=== PATIENT | male | born 1995 | race Caucasian/White ===

== ENCOUNTER 2018-12-07 15:29 | Emergency (ER) | payer OTHER ==
[~2018-12-07] VITALS: Ht 137.2 cm; Wt 36.3 kg
[~2018-12-07 15:29] MED LIST: ACET325UDC; ALBUTEROL MDI; ALUMAGSIMA; AMOCLA400S PO; CALC.25; CALC.25 PO; CALGLU500; CEPH250SUA PO; DIPH12.5EL; IBUP100S; IPRAIS; Keppra100 MG/1 M PO; MAGNESIUM/PROTEIN; MAGOXI400; MUPI2TC; NYST100P; OXCA150; PHENO15; PHENO60; PHENY125EA; POTA20LUD; SIME40L; ZANTAC SYRUP; [UNRECOGNIZED DRUG - OTHER]; [UNRECOGNIZED DRUG - OTHER]; [UNRECOGNIZED DRUG - OTHER]; [UNRECOGNIZED DRUG - OTHER]
== END 2018-12-07 18:01 | disposition home or self-care (01) ==
LOC: ER 15:29
DX: S52.571A Other intraarticular fracture of lower end of right radius, initial encounter for closed fracture (principal); S52.614A Nondisplaced fracture of right ulna styloid process, initial encounter for closed fracture; Z91.040 Latex allergy status; Z88.8 Allergy status to other drugs, medicaments and biological substances; Z79.899 Other long term (current) drug therapy; G40.909 Epilepsy, unspecified, not intractable, without status epilepticus; W22.8XXA Striking against or struck by other objects, initial encounter
CPT/HCPCS: 29125; 73090; 73130; 99283-25

== ENCOUNTER 2019-04-12 21:05 | Emergency (ER) | payer OTHER ==
[~2019-04-12] VITALS: Ht 129.5 cm; Wt 36.3 kg
[2019-04-12 22:32] LABS: BASOPHILS ABSOLUTE AUTO 0.04 K/mm3 (0.00-0.23); BASOPHILS PERCENT AUTO 1 % (0-2); EOSINOPHILS ABSOLUTE AUTO 0.08 K/mm3 (0.00-0.68); EOSINOPHILS PERCENT AUTO 1 % (0-6); Hematocrit 49.4 % (37.0-53.0); Hemoglobin 16.6 g/dL (13.5-17.5); IMMATURE GRAN ABSOLUTE AUTO 0.04 K/mm3 (0.00-0.10); IMMATURE GRAN PERCENT AUTO 1 % (0-1); LYMPHOCYTES ABSOLUTE AUTO 1.31 K/mm3 (0.84-5.20); LYMPHOCYTES PERCENT AUTO 16 % (21-46); MONOCYTES ABSOLUTE AUTO 0.89 K/mm3 (0.16-1.47); MONOCYTES PERCENT AUTO 11 % (4-13); Mean Corpuscular HGB 33.1 pg (26.0-34.0); Mean Corpuscular HGB Conc 33.6 g/dL (31.5-36.5); Mean Corpuscular Volume 98 fL (80-100); Mean Platelet Volume 12.6 fL (9.1-12.4); NEUTROPHILS ABSOLUTE AUTO 5.88 K/mm3 (1.96-9.15); NEUTROPHILS PERCENT AUTO 71 % (41-73); Platelet Count 177 K/mm3 (150-400); RDW Standard Deviation 43.8 fL (35.1-46.3); Red Blood Cell Count 5.02 M/mm3 (4.30-5.90); White Blood Cell Count 8.24 K/mm3 (4.00-11.30)
[2019-04-12 22:51] LABS: Alanine Aminotransfer (ALT/SGP 62 U/L (12-78); Albumin, Blood 4.6 g/dL (3.4-5.0); Albumin/Globulin Ratio 0.9 (0.8-1.8); Alk Phos 158 U/L (50-136); Anion Gap 9 mmol/L (6-16); Aspartate Aminotrans (AST/SGOT 50 U/L (12-37); Bilirubin, Total 0.6 mg/dL (0.1-1.0); Blood Urea Nitrogen 16 mg/dL (8-24); CO2, Blood 31 mmol/L (21-32); Chloride, Blood 100 mmol/L (98-108); Creatinine, Blood 0.53 mg/dL (0.60-1.20); Globulin, Blood 5.4 g/dL (2.2-4.0); Glomerular Filtration Rate >60 (60-); Glucose, Blood 84 mg/dL (70-99); Potassium, Blood 3.5 mmol/L (3.5-5.5); Sodium, Blood 140 mmol/L (136-145)
[2019-04-13] MEDS ORDERED: Bactrim Ds Tab1 EACH PO (21:54)
== END 2019-04-12 22:22 | disposition home or self-care (01) ==
LOC: ER 21:05
PROVIDERS: Physician Assistant
DX: S60.211A Contusion of right wrist, initial encounter (principal); G80.9 Cerebral palsy, unspecified; Z91.040 Latex allergy status; Z88.8 Allergy status to other drugs, medicaments and biological substances; Z79.899 Other long term (current) drug therapy; X58.XXXA Exposure to other specified factors, initial encounter
CPT/HCPCS: 29125; 36415; 73100; 80053; 80177; 80184; 85025; 99283-25

== ENCOUNTER 2019-04-13 20:27 | Emergency (ER) | payer OTHER ==
[~2019-04-13] VITALS: Ht 129.5 cm; Wt 36.3 kg
[2019-04-13] MEDS ORDERED: Bactrim Ds Tab1 EACH PO (21:54)
== END 2019-04-13 22:02 | disposition home or self-care (01) ==
LOC: ER 20:27
DX: L03.113 Cellulitis of right upper limb (principal); G40.909 Epilepsy, unspecified, not intractable, without status epilepticus; Z91.040 Latex allergy status; Z79.899 Other long term (current) drug therapy; Z87.820 Personal history of traumatic brain injury
CPT/HCPCS: 99282

== ENCOUNTER 2019-11-02 20:41 | Emergency (ER) | payer OTHER ==
[~2019-11-02] VITALS: Ht 129.5 cm; Wt 36.3 kg
[~2019-11-02 20:41] MED LIST changes: +Bactrim Ds Tab1 EACH PO; -CALC.25; +CALC.25 PT; -IBUP100S; +IBUP100S PT; -Keppra100 MG/1 M PO; +Keppra100 MG/1 M PT; -PHENO60; +PHENO60 PT
[2019-11-02 21:41] LABS: BASOPHILS ABSOLUTE AUTO 0.06 K/mm3 (0.00-0.23); BASOPHILS PERCENT AUTO 0 % (0-2); EOSINOPHILS ABSOLUTE AUTO 0.04 K/mm3 (0.00-0.68); EOSINOPHILS PERCENT AUTO 0 % (0-6); Hematocrit 44.9 % (37.0-53.0); Hemoglobin 15.1 g/dL (13.5-17.5); IMMATURE GRAN ABSOLUTE AUTO 0.05 K/mm3 (0.00-0.10); IMMATURE GRAN PERCENT AUTO 0 % (0-1); LYMPHOCYTES ABSOLUTE AUTO 0.58 K/mm3 (0.84-5.20); LYMPHOCYTES PERCENT AUTO 3 % (21-46); MONOCYTES ABSOLUTE AUTO 0.86 K/mm3 (0.16-1.47); MONOCYTES PERCENT AUTO 5 % (4-13); Mean Corpuscular HGB Conc 33.6 g/dL (31.5-36.5); Mean Corpuscular Volume 98 fL (80-100); Mean Platelet Volume 12.9 fL (9.1-12.4); NEUTROPHILS ABSOLUTE AUTO 15.61 K/mm3 (1.96-9.15); NEUTROPHILS PERCENT AUTO 91 % (41-73); Platelet Count 164 K/mm3 (150-400); RDW Coefficient Variation 11.8 % (11.7-14.2); RDW Standard Deviation 42.7 fL (35.1-46.3); Red Blood Cell Count 4.57 M/mm3 (4.30-5.90)
[2019-11-02] MEDS ORDERED: Catapres-Tts 11 EACH TOP (21:43)
[2019-11-02] MEDS ORDERED: ORAL ANESTHETIC9 GM MM (21:48)
[2019-11-02] MEDS ORDERED: CLON.1 PT (21:51)
[2019-11-02] MEDS ORDERED: TRAZ50 PT (21:53)
[2019-11-02] MEDS ORDERED: MELATONIN5 M1 PT (21:54)
[2019-11-02] MEDS ORDERED: PHENO30 PT (21:55)
[2019-11-02] MEDS ORDERED: TUMS500 MG PT (21:56)
[2019-11-02] MEDS ORDERED: LACO50TA2 PT (21:57)
[2019-11-02 21:58] LABS: Alanine Aminotransfer (ALT/SGP 49 U/L (12-78); Albumin, Blood 4.1 g/dL (3.4-5.0); Albumin/Globulin Ratio 0.9 (0.8-1.8); Alk Phos 135 U/L (50-136); Anion Gap 10 mmol/L (6-16); Aspartate Aminotrans (AST/SGOT 42 U/L (12-37); Bilirubin, Total 0.2 mg/dL (0.1-1.0); Blood Urea Nitrogen 21 mg/dL (8-24); Bun/Creatinine Ratio 32.5 (12.0-20.0); CO2, Blood 27 mmol/L (21-32); Calcium, Blood 6.9 mg/dL (8.5-10.1); Chloride, Blood 104 mmol/L (98-108); Creatinine, Blood 0.65 mg/dL (0.60-1.20); Globulin, Blood 4.7 g/dL (2.2-4.0); Glomerular Filtration Rate >60 (60-); Glucose, Blood 125 mg/dL (70-99); Potassium, Blood 3.1 mmol/L (3.5-5.5); Sodium, Blood 141 mmol/L (136-145); Total Protein, Blood 8.8 g/dL (6.4-8.2)
[2019-11-02 22:18] LABS: Magnesium, Blood 1.8 mg/dL (1.6-2.4)
== END 2019-11-03 00:15 | disposition home or self-care (01) ==
LOC: ER 20:41
PROVIDERS: Emergency Medicine
DX: G40.909 Epilepsy, unspecified, not intractable, without status epilepticus (principal); E87.6 Hypokalemia; E83.51 Hypocalcemia; Z87.820 Personal history of traumatic brain injury; Z91.040 Latex allergy status; Z88.8 Allergy status to other drugs, medicaments and biological substances; Z79.899 Other long term (current) drug therapy
CPT/HCPCS: 80053; 80184; 82330; 83735; 85025; 93005; 93010; 96365; 99284-25; J0610; J7030

== ENCOUNTER 2020-01-12 23:46 | Emergency (ER) | payer OTHER ==
[~2020-01-12] VITALS: Ht 129.5 cm; Wt 37.2 kg
[~2020-01-12 23:46] MED LIST changes: +CLON.1 PT; +Catapres-Tts 11 EACH TOP; +LACO50TA2 PT; +MELATONIN5 M1 PT; +ORAL ANESTHETIC9 GM MM; +PHENO30 PT; +TRAZ50 PT; +TUMS500 MG PT
[2020-01-13 01:04] LABS: BASOPHILS ABSOLUTE AUTO 0.06 K/mm3 (0.00-0.23); BASOPHILS PERCENT AUTO 0 % (0-2); EOSINOPHILS ABSOLUTE AUTO 0.06 K/mm3 (0.00-0.68); EOSINOPHILS PERCENT AUTO 0 % (0-6); Hemoglobin 16.8 g/dL (13.5-17.5); IMMATURE GRAN ABSOLUTE AUTO 0.07 K/mm3 (0.00-0.10); IMMATURE GRAN PERCENT AUTO 1 % (0-1); LYMPHOCYTES ABSOLUTE AUTO 1.61 K/mm3 (0.84-5.20); LYMPHOCYTES PERCENT AUTO 12 % (21-46); MONOCYTES ABSOLUTE AUTO 1.06 K/mm3 (0.16-1.47); MONOCYTES PERCENT AUTO 8 % (4-13); Mean Corpuscular HGB 33.5 pg (26.0-34.0); Mean Corpuscular HGB Conc 32.9 g/dL (31.5-36.5); Mean Corpuscular Volume 102 fL (80-100); Mean Platelet Volume 14.7 fL (9.1-12.4); NEUTROPHILS PERCENT AUTO 79 % (41-73); Platelet Count 128 K/mm3 (150-400); RDW Coefficient Variation 12.1 % (11.7-14.2); RDW Standard Deviation 45.2 fL (35.1-46.3); Red Blood Cell Count 5.02 M/mm3 (4.30-5.90); White Blood Cell Count 13.66 K/mm3 (4.00-11.30)
[2020-01-13 01:20] LABS: Alanine Aminotransfer (ALT/SGP 78 U/L (12-78); Albumin, Blood 4.5 g/dL (3.4-5.0); Albumin/Globulin Ratio 0.8 (0.8-1.8); Alk Phos 129 U/L (50-136); Anion Gap 6 mmol/L (6-16); Aspartate Aminotrans (AST/SGOT 58 U/L (12-37); Bilirubin, Total 0.4 mg/dL (0.1-1.0); Blood Urea Nitrogen 26 mg/dL (8-24); Bun/Creatinine Ratio 39.4 (12.0-20.0); CO2, Blood 30 mmol/L (21-32); Calcium, Blood 9.9 mg/dL (8.5-10.1); Chloride, Blood 113 mmol/L (98-108); Creatinine, Blood 0.66 mg/dL (0.60-1.20); Globulin, Blood 5.7 g/dL (2.2-4.0); Glomerular Filtration Rate >60 (60-); Glucose, Blood 93 mg/dL (70-99); Magnesium, Blood 2.3 mg/dL (1.6-2.4); Potassium, Blood 4.3 mmol/L (3.5-5.5); Sodium, Blood 149 mmol/L (136-145); Total Protein, Blood 10.2 g/dL (6.4-8.2); Troponin I <0.015 ng/mL (0.000-0.040)
== END 2020-01-13 03:24 | disposition home or self-care (01) ==
LOC: ER 23:46
PROVIDERS: Emergency Medicine
DX: E86.0 Dehydration (principal); R00.0 Tachycardia, unspecified; G80.9 Cerebral palsy, unspecified; G40.909 Epilepsy, unspecified, not intractable, without status epilepticus; Z88.1 Allergy status to other antibiotic agents; Z91.040 Latex allergy status; Z91.09 Other allergy status, other than to drugs and biological substances; Z79.899 Other long term (current) drug therapy; Z87.442 Personal history of urinary calculi
CPT/HCPCS: 71045; 80053; 83735; 84145; 84484; 85025; 93005; 93010; 99285-25; J7030

== ENCOUNTER 2020-01-26 17:53 | Inpatient (IN) | payer OTHER ==
[~2020-01-26] VITALS: Ht 127 cm; Wt 39.8 kg
[~2020-01-26 17:53] MED LIST changes: +AMOX-CLAV400 MG/5 M PT; +CATAPRES-TTS 31 EAC2 TOP; -Catapres-Tts 11 EACH TOP; +MELA3 PT; -MELATONIN5 M1 PT; +[UNRECOGNIZED DRUG - CODE] MM
[2020-01-26 19:00] LABS: BASOPHILS PERCENT AUTO 1 % (0-2); EOSINOPHILS ABSOLUTE AUTO 0.15 K/mm3 (0.00-0.68); EOSINOPHILS PERCENT AUTO 2 % (0-6); Hematocrit 50.4 % (37.0-53.0); Hemoglobin 16.4 g/dL (13.5-17.5); IMMATURE GRAN ABSOLUTE AUTO 0.07 K/mm3 (0.00-0.10); IMMATURE GRAN PERCENT AUTO 1 % (0-1); LYMPHOCYTES ABSOLUTE AUTO 2.38 K/mm3 (0.84-5.20); LYMPHOCYTES PERCENT AUTO 23 % (21-46); MONOCYTES ABSOLUTE AUTO 0.77 K/mm3 (0.16-1.47); MONOCYTES PERCENT AUTO 8 % (4-13); Mean Corpuscular HGB 33.1 pg (26.0-34.0); Mean Corpuscular HGB Conc 32.5 g/dL (31.5-36.5); Mean Corpuscular Volume 102 fL (80-100); NEUTROPHILS ABSOLUTE AUTO 6.79 K/mm3 (1.96-9.15); NEUTROPHILS PERCENT AUTO 66 % (41-73); Platelet Count 98 K/mm3 (150-400); RDW Coefficient Variation 11.7 % (11.7-14.2); RDW Standard Deviation 44.1 fL (35.1-46.3); Red Blood Cell Count 4.95 M/mm3 (4.30-5.90); White Blood Cell Count 10.26 K/mm3 (4.00-11.30)
[2020-01-26 19:40] LABS: Magnesium, Blood 2.6 mg/dL (1.6-2.4)
[2020-01-26 19:45] LABS: Alanine Aminotransfer (ALT/SGP 108 U/L (12-78); Albumin, Blood 4.2 g/dL (3.4-5.0); Albumin/Globulin Ratio 0.8 (0.8-1.8); Alk Phos 108 U/L (50-136); Anion Gap 6 mmol/L (6-16); Aspartate Aminotrans (AST/SGOT 65 U/L (12-37); Bilirubin, Total 0.4 mg/dL (0.1-1.0); Blood Urea Nitrogen 34 mg/dL (8-24); Bun/Creatinine Ratio 44.9 (12.0-20.0); CO2, Blood 33 mmol/L (21-32); Calcium, Blood 9.5 mg/dL (8.5-10.1); Chloride, Blood 117 mmol/L (98-108); Creatinine, Blood 0.76 mg/dL (0.60-1.20); Globulin, Blood 5.2 g/dL (2.2-4.0); Glomerular Filtration Rate >60 (60-); Glucose, Blood 87 mg/dL (70-99); Phosphorus, Blood 4.3 mg/dL (2.5-4.9); Potassium, Blood 4.1 mmol/L (3.5-5.5); Sodium, Blood 156 mmol/L (136-145); Total Protein, Blood 9.4 g/dL (6.4-8.2)
[2020-01-26] MEDS ORDERED: CALCITRIOL 1 MCG/ML PT (21:06)
[2020-01-26] MEDS ORDERED: VIMPAT10 MG/1 ML PT (21:07)
[2020-01-26] MEDS ORDERED: TRAZ50 PT (21:08)
[2020-01-26] MEDS ORDERED: PHENO60 PT ×3 (21:08→21:10)
[2020-01-26] MEDS ORDERED: Levetirace100 MG/1 M PT (21:09)
[2020-01-26] MEDS ORDERED: MUPIROCIN22 GM TOP (21:15)
[2020-01-26 21:59] LABS: CPK Creatine Kinase 61 U/L (39-308); Creatine Kinase MB <1.0 ng/mL (0.0-3.6); Creatine Kinase MB Index Unable to Calculate (0.0-4.0)
[2020-01-26 22:06] LABS: Osmolality, Serum 325 mos/KG (275-300)
--- NOTE | 2020-01-27 00:45 | NUR ---
ADMIT PT ADMITTED TO THE ROOM, HE IS AWAKE AT THIS TIME BUT SLEEPY, ER NURSE REPORTED GIVING ATIVAN & FENTANYL. PT IS NONVERBAL BUT WILL RESPOND TO VERBAL STIMULI, SMILES & TRACKS OBJECTS WITH HIS EYES. PT IS ON RA, NS INFUSING @ 200 MLS/HR PER EMAR, VSS, PARENTS ARE AT THE BEDSIDE, HOME VENT WAS BROUGHT IN BY THE PARENTS AND WAS PLACED ON THE PT BY MOM, RT WAS IN TO VERIFY SETTINGS, CONT BIOX IN PLACE, O2 SATS REMAIN ABOVE 93%, RESP UNLABORED, PT IS RESTING COMFORTABLY, SIEZURE PADS ARE IN PLACE. CONTINUOUS FEEDS WERE INITIATED PER [place] AT HOME RATE PER PARENTS REQUEST VIA G-TUBE, URINE COLLECTION BAG WAS PLACED IN THE ED, AWAITING SAMPLE. PT'S DAD WILL BE STAYING THE NIGHT, HE WAS GIVEN A BLANKET,PILLOW & RECLYNER, CALL LIGHT IN REACH AT THIS TIME, DAMIR.
--- NOTE | 2020-01-27 05:53 | NUR ---
SUMMARY NO ACUTE CHANGES SINCE ADMISSION, PT HAS BEEN RESTING QUIETLY, DAD REMAINS AT THE BEDSIDE. PT IS ON HIS HOME VENT ON RA, D5NS INFUSING @ 125 ML/HR PER EMAR, PT HAS NOT VOIDED SINCE ADMISSION, URINE BAG REMAINS IN PLACE FOR SAMPLE COLLECTION, REPOSITIONED PRN/Q2. WCATM & REPORT TO DAY RN, CALL LIGHT IN REACH.
[2020-01-27 06:28] LABS: BASOPHILS ABSOLUTE AUTO 0.05 K/mm3 (0.00-0.23); BASOPHILS PERCENT AUTO 1 % (0-2); EOSINOPHILS ABSOLUTE AUTO 0.23 K/mm3 (0.00-0.68); EOSINOPHILS PERCENT AUTO 3 % (0-6); Hematocrit 40.3 % (37.0-53.0); Hemoglobin 13.1 g/dL (13.5-17.5); IMMATURE GRAN ABSOLUTE AUTO 0.04 K/mm3 (0.00-0.10); IMMATURE GRAN PERCENT AUTO 1 % (0-1); LYMPHOCYTES ABSOLUTE AUTO 1.76 K/mm3 (0.84-5.20); LYMPHOCYTES PERCENT AUTO 22 % (21-46); MONOCYTES ABSOLUTE AUTO 0.77 K/mm3 (0.16-1.47); MONOCYTES PERCENT AUTO 10 % (4-13); Mean Corpuscular HGB 33.6 pg (26.0-34.0); Mean Corpuscular HGB Conc 32.5 g/dL (31.5-36.5); Mean Corpuscular Volume 103 fL (80-100); NEUTROPHILS ABSOLUTE AUTO 5.14 K/mm3 (1.96-9.15); NEUTROPHILS PERCENT AUTO 64 % (41-73); Platelet Count 87 K/mm3 (150-400); RDW Coefficient Variation 11.8 % (11.7-14.2); RDW Standard Deviation 44.5 fL (35.1-46.3); White Blood Cell Count 7.99 K/mm3 (4.00-11.30)
[2020-01-27 06:41] LABS: Anion Gap 3 mmol/L (6-16); Blood Urea Nitrogen 27 mg/dL (8-24); Bun/Creatinine Ratio 40.7 (12.0-20.0); CO2, Blood 32 mmol/L (21-32); Calcium, Blood 7.8 mg/dL (8.5-10.1); Chloride, Blood 123 mmol/L (98-108); Creatinine, Blood 0.66 mg/dL (0.60-1.20); Glomerular Filtration Rate >60 (60-); Glucose, Blood 112 mg/dL (70-99); Potassium, Blood 3.4 mmol/L (3.5-5.5); Sodium, Blood 158 mmol/L (136-145)
[2020-01-27 10:34] LABS: Creatinine, Urine Random 61.1 mg/dL (27.00-270.00)
--- NOTE | 2020-01-27 18:11 | NUR ---
SHIFT SUMMARY PT ALERT; NONVERBAL; ORIENTED TO SELF AND FAMILY. PT SLEEPING INTERMITTENTLY T/O SHIFT. PT REPOSTIONING SELF IN BED. PT GRIMICING THIS AFTERNOON AND PATTING HIS ABD; PT MOTHER STATES THAT USUALLY MEANS HE IS IN PAIN, MEDICATED x1. PT MOTHER REPORTING 2-3 SEIZURES APPROX 5 SECONDS IN LENGTH; PT MOTHER STATES HE USUALLY GETS THESE WHEN HE IS SICK OR IN PAIN, MEDICATED x1 WITH ATIVAN. PT STARTED COLACE AND SENNA THIS AM; PARENTS ASKED TO WAIT ON ENEMA UNTIL THIS EVENING; NO BM BY 1800; ENEMA WAS ADMINISTERED WITH BM. VSS. NO OTHER ACUTE CHANGES NOTED DUING SHIFT.
--- NOTE | 2020-01-27 18:17 | NUR ---
MAXI UNABLE TO VERIFY VITPAT PRESCRIPTION SENT TO PHARMACY; DR PACHECO NOTIFIED; OK FOR FAMILY TO CONTINUE TO ADMINISTER MEDICATIONS. EDUCATED FAMILY ON NOTIFYING STAFF WHEN THEY ARE ADMINISTERING MEDICATIONS. WILL CONTINUE TO MONITOR.
[2020-01-28 04:59] LABS: Anion Gap 5 mmol/L (6-16); Blood Urea Nitrogen 19 mg/dL (8-24); Bun/Creatinine Ratio 30.6 (12.0-20.0); CO2, Blood 30 mmol/L (21-32); Calcium, Blood 7.4 mg/dL (8.5-10.1); Chloride, Blood 110 mmol/L (98-108); Creatinine, Blood 0.62 mg/dL (0.60-1.20); Glomerular Filtration Rate >60 (60-); Glucose, Blood 88 mg/dL (70-99); Potassium, Blood 3.5 mmol/L (3.5-5.5); Sodium, Blood 145 mmol/L (136-145)
--- NOTE | 2020-01-28 06:23 | NUR ---
SUMMARY PATIENT ALERT AND NONVERBAL. PATIENTS FATHER IN ROOM AT ALL TIMES AND HELPS WITH PATIENT CARE INCLUDING BRIEF CHANGES AND SETTING UP HOME VENT. PATIENT IS INCONTINENT AND VOIDING. REPOSITIONS SELF IN BED. PATIENT APPEARS HAPPY AND IS COOPERATIVE WITH CARE. TUBE FEEDING TO GOAL, DEXTROSE INFUSING TO ORDERS. ROOM AIR IN THE DAY, 02 >95%. ABDOMINAL DISTENTION NOTED. VSS, NO ACUTE CHANGES OVERNIGHT.
[2020-01-28] MEDS ORDERED: DOCU LIQUI50 MG/5 ML PT (11:40)
[2020-01-28] MEDS ORDERED: NYSTATIN100000 UN1 MT (11:48)
[2020-01-28] MEDS ORDERED: SENN187 PO (11:49)
--- NOTE | 2020-01-28 14:52 | NUR ---
DISCHARGE SUMMARY PT ALERT; POSITVE AFFECT; NONVERBAL AT BASELINE. PT 1 PERSON ASSIST TO WHEELCHAIR. PT RESTING IN BED DURING SHIFT; REPOSITIONS SELF IN BED. NO S/SX OF DISTRESS NOTED. PT TOLERATING TUBE FEEDING. SOFT, BROWN BM THIS AM. NO SEIZURES NOTED. VSS. NO OTHER ACUTE CHANGES NOTED. EDUCATED PT AND FAMILY ON DISCHARGE INSTRUCTIONS, FOLLOW UP APPOINTMENT AND MEDICATIONS. PRESCRIPTION CALLED INTO [facility]STY. PT LEFT ROOM VIA HOME WHEELCHAIR AT 1249. PT STABLE UPON DISCHARGE.
== END 2020-01-28 12:50 | disposition home or self-care (01) | DRG 392 ==
LOC: ER 17:53 → PCU 23:01 → ENPENDDIS 01-28 10:43 → PCU 01-28 12:50
PROVIDERS: Emergency Medicine; Internal Medicine; Physician Assistant; ADMIT Internal Medicine
PROC: 5A1935Z Respiratory Ventilation, Less than 24 Consecutive Hours (ICD-10-PCS; principal; 2020-01-26)
DX: K59.00 Constipation, unspecified (principal); E87.0 Hyperosmolality and hypernatremia; J96.11 Chronic respiratory failure with hypoxia; Z99.11 Dependence on respirator [ventilator] status; E86.0 Dehydration; G40.909 Epilepsy, unspecified, not intractable, without status epilepticus; D69.6 Thrombocytopenia, unspecified; G80.9 Cerebral palsy, unspecified; F89 Unspecified disorder of psychological development
CPT/HCPCS: 36415; 74176; 80048; 80053; 82550; 82553; 82570; 83735; 83930; 83935; 84100; 84295; 84300; 85025; 93005; 93010; 94762; 96360-59; 96361; 99284-25; J2060; J3010; J7030; J7042; J7070

== ENCOUNTER → 2020-03-16 | Outpatient (CLI) | payer OTHER ==
[~2020-03-16] MED LIST changes: +ACET325UDC PO; +ACET325UDC PT; +Atarax10 MG PO; +CALCITRIOL 1 MCG/ML PT; +DOCU LIQUI50 MG/5 ML PT; +Diastat2.5 MG PR; +GLYCERIN1 EAC3 PR; +Levetirace100 MG/1 M PT; +MAGAMI PT; +MIRALAX PT; +MUPIROCIN22 GM TOP; +NOVAFERRUM125 MG/51 PO; +NYSTATIN100000 UN1 MT; +ORAL ANESTHETIC9 GM TOP; +PHENO60 PO; +SENN187 PO; +SENN187 PT; +VIMPAT10 MG/1 ML PT
[2020-03-16 15:05] LABS: Appearance, Urine Clear (Clear); Bilirubin, Urine Neg (Neg); Blood, Urine Neg (Neg); Color, Urine Yellow (P-Yellow); Glucose Qualitative, Urine Neg (Neg); Ketones, Urine Neg (Neg); Leukocyte Esterase, Urine Neg (Neg); Nitrite, Urine Neg (Neg); Protein, Urine Neg (Neg); Specific Gravity, Urine 1.015 (1.003-1.022); Urobilinogen, Urine NORM (Normal)
== END ==
LOC: PLD 13:11 → LAB SHORT 13:11
PROVIDERS: Specialist
DX: E83.51 Hypocalcemia (principal); R56.9 Unspecified convulsions; R00.0 Tachycardia, unspecified
CPT/HCPCS: 81003

== ENCOUNTER 2020-08-10 21:15 | Emergency (ER) | payer OTHER ==
[~2020-08-10] VITALS: Ht 127 cm; Wt 38.1 kg
[~2020-08-10 21:15] MED LIST changes: -Atarax10 MG PO; -NOVAFERRUM125 MG/51 PO
[2020-08-10 22:22] LABS: BASOPHILS ABSOLUTE AUTO 0.07 K/mm3 (0.00-0.23); BASOPHILS PERCENT AUTO 1 % (0-2); EOSINOPHILS ABSOLUTE AUTO 0.08 K/mm3 (0.00-0.68); EOSINOPHILS PERCENT AUTO 1 % (0-6); Hematocrit 41.7 % (37.0-53.0); Hemoglobin 14.4 g/dL (13.5-17.5); IMMATURE GRAN ABSOLUTE AUTO 0.05 K/mm3 (0.00-0.10); IMMATURE GRAN PERCENT AUTO 1 % (0-1); LYMPHOCYTES ABSOLUTE AUTO 0.83 K/mm3 (0.84-5.20); LYMPHOCYTES PERCENT AUTO 10 % (21-46); MONOCYTES ABSOLUTE AUTO 0.64 K/mm3 (0.16-1.47); MONOCYTES PERCENT AUTO 7 % (4-13); Mean Corpuscular HGB 32.3 pg (26.0-34.0); Mean Corpuscular HGB Conc 34.5 g/dL (31.5-36.5); Mean Corpuscular Volume 94 fL (80-100); NEUTROPHILS ABSOLUTE AUTO 6.94 K/mm3 (1.96-9.15); NEUTROPHILS PERCENT AUTO 81 % (41-73); RDW Coefficient Variation 11.8 % (11.7-14.2); RDW Standard Deviation 40.4 fL (35.1-46.3); Red Blood Cell Count 4.46 M/mm3 (4.30-5.90); White Blood Cell Count 8.61 K/mm3 (4.00-11.30)
[2020-08-10 22:24] LABS: Mean Platelet Volume 11.2 fL (9.1-12.4); Platelet Count 198 K/mm3 (150-400)
[2020-08-10] MEDS ORDERED: Atarax10 MG PO (22:51)
[2020-08-10] MEDS ORDERED: NOVAFERRUM125 MG/51 PO (22:54)
[2020-08-10 23:04] LABS: Alanine Aminotransfer (ALT/SGP 30 U/L (12-78); Albumin, Blood 4.1 g/dL (3.4-5.0); Alk Phos 146 U/L (50-136); Anion Gap 7 mmol/L (6-16); Aspartate Aminotrans (AST/SGOT 29 U/L (12-37); Bilirubin, Total 0.3 mg/dL (0.1-1.0); Blood Urea Nitrogen 10 mg/dL (8-24); CO2, Blood 29 mmol/L (21-32); Calcium, Blood 6.4 mg/dL (8.5-10.1); Chloride, Blood 103 mmol/L (98-108); Creatinine, Blood 0.67 mg/dL (0.60-1.20); Glomerular Filtration Rate >60 (60-); Glucose, Blood 90 mg/dL (70-99); Magnesium, Blood 2.1 mg/dL (1.6-2.4); Potassium, Blood 3.6 mmol/L (3.5-5.5); Sodium, Blood 139 mmol/L (136-145); Total Protein, Blood 8.1 g/dL (6.4-8.2)
== END 2020-08-10 23:57 | disposition home or self-care (01) ==
LOC: ER 21:15
PROVIDERS: Physician Assistant
DX: G40.909 Epilepsy, unspecified, not intractable, without status epilepticus (principal); Z79.899 Other long term (current) drug therapy
CPT/HCPCS: 80053; 80184; 83735; 85025; 99284; A9270

== ENCOUNTER 2021-05-13 13:59 | Observation (INO) | payer OTHER ==
[~2021-05-13] VITALS: Ht 129.5 cm; Wt 34.2 kg
[~2021-05-13 13:59] MED LIST changes: +Atarax10 MG PO; +NOVAFERRUM125 MG/51 PO
[2021-05-13 15:08] LABS: BASOPHILS ABSOLUTE AUTO 0.05 K/mm3 (0.00-0.23); BASOPHILS PERCENT AUTO 1 % (0-2); EOSINOPHILS PERCENT AUTO 2 % (0-6); Hematocrit 44.6 % (37.0-53.0); Hemoglobin 15.1 g/dL (13.5-17.5); IMMATURE GRAN ABSOLUTE AUTO 0.02 K/mm3 (0.00-0.10); IMMATURE GRAN PERCENT AUTO 0 % (0-1); LYMPHOCYTES ABSOLUTE AUTO 1.09 K/mm3 (0.84-5.20); LYMPHOCYTES PERCENT AUTO 18 % (21-46); MONOCYTES ABSOLUTE AUTO 0.47 K/mm3 (0.16-1.47); MONOCYTES PERCENT AUTO 8 % (4-13); Mean Corpuscular HGB 32.5 pg (26.0-34.0); Mean Corpuscular HGB Conc 33.9 g/dL (31.5-36.5); Mean Corpuscular Volume 96 fL (80-100); Mean Platelet Volume 10.9 fL (9.1-12.4); NEUTROPHILS ABSOLUTE AUTO 4.18 K/mm3 (1.96-9.15); NEUTROPHILS PERCENT AUTO 71 % (41-73); Platelet Count 235 K/mm3 (150-400); RDW Coefficient Variation 12.1 % (11.7-14.2); RDW Standard Deviation 42.9 fL (35.1-46.3); Red Blood Cell Count 4.64 M/mm3 (4.30-5.90); White Blood Cell Count 5.91 K/mm3 (4.00-11.30)
[2021-05-13 15:27] LABS: Magnesium, Blood 1.8 mg/dL (1.6-2.4)
[2021-05-13 15:32] LABS: Alanine Aminotransfer (ALT/SGP 43 U/L (12-78); Albumin, Blood 3.9 g/dL (3.4-5.0); Albumin/Globulin Ratio 0.8 (0.8-1.8); Alk Phos 195 U/L (50-136); Anion Gap 11 mmol/L (6-16); Aspartate Aminotrans (AST/SGOT 49 U/L (12-37); Bilirubin, Total 0.5 mg/dL (0.1-1.0); Blood Urea Nitrogen 13 mg/dL (8-24); Bun/Creatinine Ratio 23.6 (12.0-20.0); CO2, Blood 25 mmol/L (21-32); Calcium, Blood 5.3 mg/dL (8.5-10.1); Chloride, Blood 102 mmol/L (98-108); Creatinine, Blood 0.55 mg/dL (0.60-1.20); Globulin, Blood 4.9 g/dL (2.2-4.0); Glomerular Filtration Rate >60 (60-); Glucose, Blood 105 mg/dL (70-99); Sodium, Blood 138 mmol/L (136-145); Total Protein, Blood 8.8 g/dL (6.4-8.2)
[2021-05-13] MEDS ORDERED: CALCIUM CITRAT200 MG PO (16:22)
[2021-05-13 19:20] LABS: Calcium, Ionized (POC) 0.79 mmol/L (1.10-1.46); Chloride (POC) 98 mmol/L (98-108); Creatinine (POC) 0.6 mg/dL (0.8-1.3); Glucose (ISTAT POC) 86 mg/dL (70-99); Hemoglobin (POC) 12.9 g/dL (13.5-17.5); Potassium (POC) 3.7 mmol/L (3.5-5.5); Sodium (POC) 140 mmol/L (135-148); Total CO2 (POC) 27 mmol/L (21-32)
--- NOTE | 2021-05-14 02:52 | NUR ---
RE: ADMINISTRATION OF PATIENT HOME MEDICATIONS PER PATIENT'S MOTHER, DEIRDRE GUTIERREZ, SHE AND HER WERE GIVEN PERMISSION BY DR. BRIZUELA IN THE EMERGENCY DEPARTMENT (ED), THEN BY THE ADMITTING MD DR. GRACE, TO ADMINISTER JOSE'S HOME MEDICATIONS TO HIM IN LIEU OF ADMINISTERING THESE SAME MEDICATIONS VIA THE HOSPITAL PHARMACY. , & MRS. GUTIERREZ PRESENTED THE MEDICATIONS TO THE ED STAFF PRE-FILLED SYRINGES THAT WERE PREPARED AT HOME AND BROUGHT INTO THE HOSPITAL BY MR. GUTIERREZ. THE SYRINGES ARE UNMARKED AND ACTUAL CONTENTS OF THE SYRINGES UNKNOWN TO HOSPITAL STAFF. NO PRESCRIPTION BOTTLES WERE AVAILABLE FOR REVIEW THESE WERE NOT BROUGHT IN WITH THE PATIENT. THE CONTENTS OF THE SYRINGES ARE KNOWN ONLY TO . & MRS. GUTIERREZ. I RECEIVED REPORT FROM THE ED NURSE ALEXANDER AND HE ADVISED ME OF THE PREVIOUS ADMINISTRATION OF THE PATIENT'S HOME MEDICATIONS AND REPORTED THAT THIS PROCESS WAS OKAYED BY THE PHYSICIANS IN THE ED. UPON REVIEW OF THE CHART, THERE IS A NURSING NOTE THAT STATES PERMISSIONS WAS RECEIVED FOR THE PARENTS TO ADMINISTER THE UNMARKED SYRINGES WITH THE PATIENT'S HOME MEDICATIONS. I ASKED IF THERE WAS A DOCTOR'S ORDER STATING THIS AND WAS ADVISED THAT THERE WAS NO ORDER, JUST A NOTE IN THE EMR. I ASKED THAT THIS BE ADDRESSED PRIOR TO THE PATIENT'S ARRIVAN TO THE PCU, AND WAS ADVISED THAT IT WILL BE ADDRESSED. I ALERTED MY THERMODYNAMICS TEACHER REJI OF THIS HAPPENING AND DISCUSSIONS WERE HAD ABOUT THE NEED FOR ACQUIRING THE PRESCRIPTION BOTTLES FOR THE ACTUAL MEDICATIONS. UPON PATIENT'S ARRIVAL TO PCU 17, I WAS ADVISED BY MRS. GUTIERREZ THAT JOSE NEEDS HIS EVENING DOSE OF HIS MEDICATIONS AND TO HAVE HIS CONTINOUS TUBE FEEDING INITIATED. I ASKED IF THEY HAD THE PRESCRIPTION BOTTLES SO THAT WE CAN SEND THE MEDICATIONS TO THE PHARMACY FOR VERIFICATION AND LABELING SO THAT WE CAN DOCUMENT THEIR ADMINISTRATION IN OR E-MAR. MRS. GUTIERREZ SAID THAT SHE DOES NOT HAVE THE BOTTLES WITH HERE, JUST TWO UNMARKED, PRE-PRAPRED SYRINGES CONTAINING THE HOMES DOSES OF THE FOLLOWING MEDICATIONS: CALCITROL, DOCUSATE SODIUM, PHENOBARBITOL, KEPPRA, VIMPAT. I REITERATED THE PROCEDURE USED IN THE HOSPITAL FOR PROPER DOCUMENTATION OF ADMINISTRATION OF HOME MEDICATIONS AND ADVISED HER AND MR. GUTIERREZ THAT I NEED TO REACH OUT TO THE IN HOUSE PHYSICIAN, DR. DIEGO, REGARDING THE DISCUSSION HAD WITH THE DOCTORS IN THE ED (SEE PARAGRAPH 1) ABOUT THIS MODE OF MEDICAITON ADMINISTRATION. I REACHED OUT TO REJI, PCU THERMODYNAMICS TEACHER, AND ASKED IF SHE COULD CONTACT DR. DIEGO AND ASK THAT HE COME TO THE BEDSIDE TO SPEAK WITH THE PARENTS REGARDING THE PARENTS ADMINISTERING THE PATIENT'S HOME MEDICATIONS. REJI SPOKE WITH DR. DIEGO ON THE PHONE AND CAME TO THE PATIENT'S ROOM TO SPEAK WITH HIS PARENTS. AT APPROXIMATELY, 00:45 PERMISSION WAS GIVEN OVER THE PHONE TO REJI BY DR. THOMPSON FOR THE PARENTS TO ADMINISTER THE PREPARED HOME MEDICATIONS. THESE MEDICATIONS WERE ADMINISTERED AT 00:58. REJI ADVISED THE PARENTS THAT WE WILL REACH OUT TO DETERMINE THE APPROPRIATE STEPS TO TAKE TO DOCUMENT THIS. AT APPROXIMATELY 0230, THE NURSING SALESPERSON BURIAL NEEDS EWELINA CAME TO THE PATIENT'S ROOM AND SPOKE WITH . & MRS. GUTIERREZ REAGARDING HOSPITAL POLICY AND STANDARD PROCEDURE FOR ADMINISTRATION OF HOME MEDICATIONS WHILE INPATIENT. . & MRS. GUTIERREZ UNDERSTAND THAT THE POLICY IN PLACE FOR PATIENT SAFETY AND PROTECTION OF EACH CAREGIVER'S LICENSE IS THAT ALL MEDICATIONS ADMINISTERED MUST BE VERFIED BY THE PHARMACY, LABELED FOR ADMINISTRATION AND DOCUMENTED IN THE EMAR FOLLOWING ALL RIGHTS OF MEDICATION ADMINISTRATION. IN THE ABSENCE OF THE ACTUAL PRESCRIPTION BOTTLES THIS CANNOT BE DONE. MRS. GUTIERREZ STATED THAT SHE UNDERSTANDS THE HOSPITAL POLICY AND STANDARD PROCEDURE, THAT SHE ACCEPTS ALL RISK AND RESPONSIBILTY FOR ADMINISTERING JOSE'S HOME MEDICATIONS, AND THAT SHE OR HER WILL CONTINUE TO ADMINISTER THESE MEDICATIONS THROUGHOUT THIS INPATIENT STAY. SHE ALSO AGREED TO NOTIFY STAFF ANY TIME THE MEDCICATIONS ARE ADMINISTERED AND THAT SHE OR HER WITLL BRING IN THE PRESCRIPTION BOTTLES SOON POSSIBLE.
--- NOTE | 2021-05-14 03:30 | NUR ---
MEDICATION ADMINISTRATION PT'S PARENTS ARE AT THE BEDSIDE AND WERE GIVEN PERMISSION TO ADMINISTER HOME MEDICATIONS. CONTACTED HOSPITALIST AND RECEIVED ORDER THAT PT'S MAY GIVE HOME MEDICATIONS. HOWEVER, UPON FURTHER CONVERSATION WITH PARENTS, IT WAS DISCOVERED THAT THE PRECRIPTION BOTTLES ARE NOT PRESENT AND THAT MEDICATIONS WERE GATHERED IN LIQUID FORM FROM HOME (SUFFICIENT QUANTITY ONLY FOR THE PLAN OF ADMISSION FOR 1 DAY). DISCUSSED SITUATION WITH NURSING OIL SPREADER OPERATOR EWELINA WHO THEN MET WITH PT'S PARENTS AND DISCUSSED HOSPITAL POLICY ON HOME MEDICATION ADMINISTRATION. PT'S PARENTS EXPRESSED FRUSTRATION AT POOR COMMUNICATION AND STATED "THE DOCTORS AND STAFF IN THE ER HAVE BEEN WATCHING US GIVE THESE MEDICATIONS ALL DAY AND THE DOCTOR SAID IT WAS OK". AFTER LENGTHY DISCUSSION, THE OIL SPREADER OPERATOR STATED THAT MEDICATIONS CANNOT BE DOCUMENTED BY NURSING STAFF WITHOUT VERIFICATION FROM PHARMACY. PARENTS ARE REFUSING TO DRIVE HOME TO OBTAIN PRESCRIPTION BOTTLES AT THIS TIME AND STATE "HE SHOULDN'T NEED TO BE HERE FOR VERY LONG SO WE'RE NOT GOING TO DRIVE ALL THE WAY TO [place] TO GET THESE DURING THE MIDDLE OF THE NIGHT".
[2021-05-14 03:55] LABS: BASOPHILS ABSOLUTE AUTO 0.09 K/mm3 (0.00-0.23); BASOPHILS PERCENT AUTO 1 % (0-2); EOSINOPHILS ABSOLUTE AUTO 0.08 K/mm3 (0.00-0.68); EOSINOPHILS PERCENT AUTO 1 % (0-6); Hematocrit 41.1 % (37.0-53.0); Hemoglobin 13.9 g/dL (13.5-17.5); IMMATURE GRAN ABSOLUTE AUTO 0.03 K/mm3 (0.00-0.10); IMMATURE GRAN PERCENT AUTO 1 % (0-1); LYMPHOCYTES ABSOLUTE AUTO 1.56 K/mm3 (0.84-5.20); LYMPHOCYTES PERCENT AUTO 25 % (21-46); MONOCYTES ABSOLUTE AUTO 0.71 K/mm3 (0.16-1.47); MONOCYTES PERCENT AUTO 11 % (4-13); Mean Corpuscular HGB 32.6 pg (26.0-34.0); Mean Corpuscular HGB Conc 33.8 g/dL (31.5-36.5); Mean Corpuscular Volume 97 fL (80-100); Mean Platelet Volume 11.3 fL (9.1-12.4); NEUTROPHILS ABSOLUTE AUTO 3.78 K/mm3 (1.96-9.15); NEUTROPHILS PERCENT AUTO 60 % (41-73); Platelet Count 213 K/mm3 (150-400); RDW Coefficient Variation 11.9 % (11.7-14.2); RDW Standard Deviation 42.9 fL (35.1-46.3); Red Blood Cell Count 4.26 M/mm3 (4.30-5.90); White Blood Cell Count 6.25 K/mm3 (4.00-11.30)
[2021-05-14 04:12] LABS: Alanine Aminotransfer (ALT/SGP 38 U/L (12-78); Albumin, Blood 3.5 g/dL (3.4-5.0); Albumin/Globulin Ratio 0.8 (0.8-1.8); Alk Phos 159 U/L (50-136); Anion Gap 7 mmol/L (6-16); Aspartate Aminotrans (AST/SGOT 40 U/L (12-37); Bilirubin, Total 0.6 mg/dL (0.1-1.0); Blood Urea Nitrogen 14 mg/dL (8-24); Bun/Creatinine Ratio 22.3 (12.0-20.0); CO2, Blood 29 mmol/L (21-32); Calcium, Blood 6.6 mg/dL (8.5-10.1); Chloride, Blood 103 mmol/L (98-108); Creatinine, Blood 0.63 mg/dL (0.60-1.20); Globulin, Blood 4.6 g/dL (2.2-4.0); Glomerular Filtration Rate >60 (60-); Glucose, Blood 109 mg/dL (70-99); Potassium, Blood 3.6 mmol/L (3.5-5.5); Sodium, Blood 139 mmol/L (136-145); Total Protein, Blood 8.1 g/dL (6.4-8.2)
--- NOTE | 2021-05-14 05:54 | NUR ---
0400 MEDICATION ADMINISTRATION BY PARENTS THE FOLLOWING HOME MEDICATIONS WERE ADMINISTERED TO JOSE BY HIS MOTHER, VIA HIS G-TUBE: CALCIUM CITRATE, PHENOBARBITOL, MAGNESIUM & PROTEIN TABLET, HYDROXYZINE. THESE MEDICATIONS WERE ADMINISTERED IN PREMIXED SYRINGES BROUGHT IN FROM HOME. MR. & MRS. GUTIERREZ UNDERSTAND THAT THIS IS NOT THE PREFERRED METHOD OF MEDICATION ADMINISTRATION IN THE HOSPITAL (SEE PREVIOUS NOTE REGARDING MEDICATION ADMINISTRATION) AND THEY ASSUME ALL RESPONSIBILITY AND RISKS ASSOCIATED WITH THE PREPARATION AND ADMINISTRATION OF THESE MEDICATIONS. NEITHER THE MEDICATIONS NOR THE DOSES IN THE PREMIXED SYRINGES ARE KNOWN TO THIS RN, OTHER THAN A LIST OF THE MEDICATION NAMES PROVIDED BY MRS. GUTIERREZ.
--- NOTE | 2021-05-14 14:39 | NUR ---
Called by awake overnight monitor to check on pt due to bradycardia, 44 bpm. Pt is sitting up in bed, parents at the bedside. Pt is watching TV. Non verbal. Blood pressure 87/54 MAP of 65. Bradycardia 44-46 bpm. Pt appears to be without distress, dyspnea, discomfort.
[2021-05-14 16:32] LABS: Magnesium, Blood 1.5 mg/dL (1.6-2.4)
[2021-05-14 16:37] LABS: Anion Gap 7 mmol/L (6-16); Blood Urea Nitrogen 15 mg/dL (8-24); Bun/Creatinine Ratio 24.5 (12.0-20.0); CO2, Blood 26 mmol/L (21-32); Calcium, Blood 9.7 mg/dL (8.5-10.1); Chloride, Blood 105 mmol/L (98-108); Creatinine, Blood 0.61 mg/dL (0.60-1.20); Glomerular Filtration Rate >60 (60-); Glucose, Blood 97 mg/dL (70-99); Potassium, Blood 3.8 mmol/L (3.5-5.5); Sodium, Blood 138 mmol/L (136-145)
--- NOTE | 2021-05-14 17:01 | NUR ---
UPDATE DISCHARGE INSTRUCTIONS PROVIDED TO PT'S MOTHER. EDUCATED ON MEDICATION CHANGES. ALL QUESTIONS ANSWERED. PT TAKEN OUT BY MOTHER IN HIS OWN WC
== END 2021-05-14 17:02 | disposition home or self-care (01) ==
LOC: ER 13:59 → MEDS 14:00 → PCU 05-14 00:24
PROVIDERS: Family Medicine; Physician Assistant; ADMIT Internal Medicine
DX: G40.909 Epilepsy, unspecified, not intractable, without status epilepticus (principal); E83.51 Hypocalcemia; I95.9 Hypotension, unspecified; R74.01 Elevation of levels of liver transaminase levels; Z86.16 Personal history of COVID-19; G80.9 Cerebral palsy, unspecified; Q67.8 Other congenital deformities of chest; Z88.8 Allergy status to other drugs, medicaments and biological substances; Z91.040 Latex allergy status; Z93.0 Tracheostomy status
CPT/HCPCS: 36415; 80047; 80048; 80053; 80184; 82330; 82947; 83735; 85014; 85025; 93005; 93010; 94762; 96365; 96366; 99285-25; A9270; J0610; J7030; J7040

== ENCOUNTER 2021-10-10 07:18 | Day surgery (SDC) | payer OTHER ==
[~2021-10-10 07:18] MED LIST changes: +CALCIUM CITRAT200 MG PO
== END 2021-10-10 23:52 | disposition home or self-care (01) ==
LOC: WOUND 07:18
DX: K94.29 Other complications of gastrostomy (principal); L03.90 Cellulitis, unspecified; G80.9 Cerebral palsy, unspecified; K94.22 Gastrostomy infection; L24.81 Irritant contact dermatitis due to metals; Z91.040 Latex allergy status; Z91.048 Other nonmedicinal substance allergy status
CPT/HCPCS: G0463

== ENCOUNTER → 2021-10-26 | Outpatient (CLI) | payer OTHER ==
[2021-10-27 13:37] LABS: Stool Occult Bld Immuno 1 Negative (NEGATIVE); Stool Occult Bld Immuno 2 Negative (NEGATIVE); Stool Occult Bld Immuno 3 Negative (NEGATIVE)
== END | disposition home or self-care (01) ==
LOC: LAB 10:30 → LAB SHORT 10:30 → EDSTATUS 10-24 14:30 → LAB FUT 10-24 14:30
PROVIDERS: Specialist
DX: R50.9 Fever, unspecified (principal); R14.0 Abdominal distension (gaseous)
CPT/HCPCS: 89055; G0328

== ENCOUNTER → 2022-09-29 | Outpatient (CLI) | payer OTHER | END | disposition home or self-care (01) | LOC: LAB SHORT 14:24 → LAB 14:24 | DX: T14.8XXA Other injury of unspecified body region, initial encounter (principal) | CPT/HCPCS: 87070; 87075; 87205 ==

== ENCOUNTER 2022-10-15 00:41 | Day surgery (SDC) | payer OTHER ==
[2022-10-15 08:19] VITALS: BP 123/88
[2022-10-15] MEDS ORDERED: SIME40L PT (08:48)
[2022-10-15] MEDS ORDERED: ERGO50000 PT (08:55)
== END 2022-10-15 10:36 | disposition home or self-care (01) ==
LOC: ATC 00:41
DX: E20.9 Hypoparathyroidism, unspecified (principal); E55.9 Vitamin D deficiency, unspecified; G40.909 Epilepsy, unspecified, not intractable, without status epilepticus; Z79.899 Other long term (current) drug therapy; Z88.8 Allergy status to other drugs, medicaments and biological substances
CPT/HCPCS: 96365; 96366; J0612

== ENCOUNTER 2023-07-21 04:14 | Day surgery (SDC) | payer OTHER ==
[~2023-07-21 04:14] MED LIST changes: +ERGO50000 PT; +SIME40L PT
[2023-07-21] MEDS ORDERED: CALCIUM GLUC IN NACL, ISO-OSM 100 ML IV SCH (06:00)
[2023-07-21 14:15] VITALS: BP 96/79
== END 2023-07-21 16:18 | disposition home or self-care (01) ==
LOC: ATC 04:14
DX: E83.51 Hypocalcemia (principal); Z91.040 Latex allergy status; Z91.048 Other nonmedicinal substance allergy status; Z79.899 Other long term (current) drug therapy
CPT/HCPCS: 82310; 96374; J0612

== ENCOUNTER → 2023-12-19 | Outpatient (CLI) | payer OTHER | LOC: LAB SHORT 15:54 → LAB 15:54 | DX: H66.91 Otitis media, unspecified, right ear (principal) | CPT/HCPCS: 87070; 87077; 87186; 87205 ==

== ENCOUNTER 2025-01-21 00:45 | Day surgery (SDC) | payer OTHER ==
[2025-01-21] MEDS ORDERED: Miconazole Nitrate 2% 85 GM PWD ONE (13:12)
== END 2025-01-21 23:00 | disposition home or self-care (01) ==
LOC: WOUND 00:45
DX: L24.B1 Irritant contact dermatitis related to digestive stoma or fistula (principal); Z93.1 Gastrostomy status; G40.909 Epilepsy, unspecified, not intractable, without status epilepticus
CPT/HCPCS: A9270; G0463